=== PATIENT | female | born 2000 | race Caucasian/White ===

== ENCOUNTER 2021-02-22 09:19 | Emergency (ER) | payer OTHER ==
[~2021-02-22] VITALS: Ht 182.9 cm; Wt 71.7 kg
[2021-02-22 09:20] VITALS: BP 112/62
[2021-02-22] MEDS ORDERED: ACETAMINOPHEN 500 MG TABLET PO ONE (10:00)
[2021-02-22] MEDS ORDERED: IBUPROFEN 400 MG TABLET. PO ONE (10:00)
--- NOTE | 2021-02-22 10:08 | PHYS DOC ---
General Adult EDM: Chief Complaint: HEADACHE HPI: HPI: Patient is a 20-year-old female who presents to the emergency department for 1 day history of headache, body aches and nasal congestion. She reports that she took Tylenol this morning and ibuprofen last night for her symptoms. Her brother is Covid positive. And she recently did travel. Patient's vital signs are stable, she is not hypoxic or tachycardic and she is afebrile. She is in no acute distress. Patient denies cough, shortness of breath, chest pain, nausea, vomiting, loss of taste or smell. (WINNIE DIANE APRN) Review of Systems: Review of Systems: Constitutional: See HPI HENT: See HPI Respiratory: See HPI Cardiovascular: See HPI GI: See HPI Musculoskeletal: See HPI Neurologic: See HPI (WINNIE DIANE APRN) Current Medications: Current Meds: Current Medications Medications (Trade) Dose Ordered Sig/Elizabeth Start Time Stop Time Status Last Admin Dose Admin Acetaminophen (Tylenol) 1,000 mg 1X ONCE 02/22/21 10:00 02/22/21 10:01 UNV Ibuprofen (Motrin) 800 mg 1X ONCE 02/22/21 10:00 02/22/21 10:01 UNV (WINNIE DIANE APRN) Physical Exam: PE: Constitutional: Well developed, well nourished, no acute distress, non-toxic appearance. [] HENT: Normocephalic, atraumatic, bilateral external ears normal, oropharynx moist, no oral exudates, nose normal. [] Eyes: PERRL, EOMI, conjunctiva normal, no discharge. [] Neck: Normal range of motion, no tenderness, supple, no stridor. [] Cardiovascular:Heart rate regular rhythm, no murmur [] Lungs & Thorax: Bilateral breath sounds clear to auscultation [] Abdomen: Bowel sounds normal, soft, no tenderness, no masses, no pulsatile masses. [] Skin: Warm, dry, no erythema, no rash. [] Back: Normal range of motion Extremities: No tenderness, no cyanosis, no clubbing, ROM intact, no edema. [] Neurologic: Alert and oriented X 3, normal motor function, normal sensory function, no focal deficits noted. [] Psychologic: Affect normal, judgement normal, mood normal. [] (WINNIE DIANE APRN) Current Patient Data: Labs: Laboratory Tests Test 02/22/21 10:10 Influenza Type A (Rapid) Negative Influenza Type B (Rapid) Negative Current Medications Medications (Trade) Dose Ordered Sig/Elizabeth Route PRN Reason Start Time Stop Time Status Last Admin Dose Admin Ibuprofen (Motrin) 800 mg 1X ONCE PO 02/22/21 10:00 02/22/21 10:27 DC 02/22/21 10:11 Acetaminophen (Tylenol) 1,000 mg 1X ONCE PO 02/22/21 10:00 02/22/21 10:27 DC 02/22/21 10:11 (WINNIE DIANE APRN) EKG: EKG: [] (WINNIE DIANE APRN) Radiology/Procedures: Radiology/Procedures: [] (WINNIE DIANE APRN) Heart Score: C/O Chest Pain: No Risk Factors: Risk Factors: DM, Current or recent (<one month) smoker, HTN, HLP, family history of CAD, obesity. Risk Scores: Score 0 - 3: 2.5% MACE over next 6 weeks - Discharge Home Score 4 - 6: 20.3% MACE over next 6 weeks - Admit for Clinical Observation Score 7 - 10: 72.7% MACE over next 6 weeks - Early Invasive Strategies (WINNIE DIANE APRN) Course & Med Decision Making: Course & Med Decision Making Pertinent Labs and Imaging studies reviewed. (See chart for details) Patient presents to the emergency department for 1 day history of headache, body aches and congestion. Patient had a Covid positive exposure. Patient denies any shortness of breath, chest pain. She is in no acute distress, her vital signs are stable. Patient will be tested for COVID-19 and influenza. Patient will be notified of her Covid results when they become available in approximately 1 to 2 days, she is advised to self isolate until she receives these results. Her rapid influenza test was negative. Patient educated on symptomatic treatment. Patient's pain treated in the emergency department. Advised to purchase a pulse oximeter. I discussed with patient all findings and diagnostic testing as well as the need to follow-up with PCP for further evaluation and treatment or return to the ER if any new or worsening symptoms. Strict return precautions were also discussed at length. Patient voiced understanding and agreement with the plan. Patient is hemodynamically stable at the time of disposition. (WINNIE DIANE APRN) Dragon Disclaimer: Dragon Disclaimer: This electronic medical record was generated, in whole or in part, using a voice recognition dictation system. (WINNIE DIANE APRN) Attending Co-Sign The patient was seen and interviewed as well as examined at the bedside. The chart was reviewed. The case was discussed. Agree with the plan of care. (AUNDREA MERINO DO) Departure Departure: Impression: Primary Impression: Person under investigation for COVID-19 Disposition: HOME / SELF CARE / HOMELESS Condition: GOOD Referrals: ANI YING MD (PCP) Patient Instructions: Myalgia, Adult Additional Instructions: You were seen in the emergency department for headache, body aches and congestion. Your rapid influenza test was negative. We tested you in the emergency department for COVID-19 and you will be notified of those results when they become available in approximately 1 to 2 days. Please self isolate until you receive these results. For your pain or fevers you can take Tylenol and ibuprofen as directed. Increase your fluids and rest. Advised to purchase a pulse oximeter and you can monitor your oxygen saturations and your heart rate at home. Please return to the emergency department if your oxygen saturation drops below 90%. Please follow-up with your primary care provider tomorrow regarding your ER visit. Please return to the emergency department if you develop shortness of breath, chest pain, tractable nausea or vomiting, high fevers refractory to treatment. WINNIE DIANE APRN Feb 22, 2021 10:08 AUNDREA MERINO DO Feb 23, 2021 06:35
[2021-02-22 10:50] LABS: INFLUENZA A PATIENT NEGATIVE (NEGATIVE); INFLUENZA B PATIENT NEGATIVE (NEGATIVE)
== END 2021-02-22 12:08 | disposition home or self-care (01) ==
LOC: ER 09:19
DX: U07.1 COVID-19 (principal)
CPT/HCPCS: 87804; 99283; C9803; U0003